=== PATIENT | female | born 1990 | race Caucasian/White ===

== ENCOUNTER 2024-04-30 19:31 | Emergency (ER) | payer SELFPAY ==
[~2024-04-30] VITALS: Ht 160 cm; Wt 60.0 kg
[~2024-04-30 19:31] MED LIST: NEOMYCIN/POLYMY1 SOL AU; OMNICEF300 M1 PO; ONDANSETRON4 MG PO; PERCOCET 5/325M1 TAB PO
[2024-04-30 19:42] VITALS: BP 120/81
[2024-04-30] MEDS ORDERED: ACETAMINOPHEN 500 MG TAB PO ONE (19:45)
[2024-04-30] MEDS ORDERED: DICLOFENAC SODIUM 75 MG/TAB PO ONE (19:45)
[2024-04-30] MEDS ORDERED: SULFAMETHOXAZOLE W/TRIMETHOPRI 1 COMBO TAB PO ONE (19:45)
[2024-04-30 19:47] VITALS: BP 113/92
[2024-04-30] MEDS ORDERED: BACTRIM DS1 TAB PO (19:50)
[2024-04-30 20:00] VITALS: BP 108/75
== END 2024-04-30 20:06 | disposition home or self-care (01) | DRG 607 ==
LOC: ED 19:31
DX: S60.461A Insect bite (nonvenomous) of left index finger, initial encounter (principal); L08.9 Local infection of the skin and subcutaneous tissue, unspecified; F17.200 Nicotine dependence, unspecified, uncomplicated; W57.XXXA Bitten or stung by nonvenomous insect and other nonvenomous arthropods, initial encounter

== ENCOUNTER 2024-08-30 23:50 | Emergency (ER) | payer SELFPAY ==
[~2024-08-30] VITALS: Ht 160 cm; Wt 65.0 kg
[~2024-08-30 23:50] MED LIST changes: +BACTRIM DS1 TAB PO
[2024-08-30 23:59] VITALS: BP 116/78
[2024-08-31 01:00] VITALS: BP 113/74
[2024-08-31] MEDS ORDERED: VOLTAREN - GENE75 MG PO (02:39)
[2024-08-31 03:11] VITALS: BP 113/74
== END 2024-08-31 03:12 | disposition home or self-care (01) | DRG 605 ==
LOC: ED 23:50
DX: S40.011A Contusion of right shoulder, initial encounter (principal); F17.200 Nicotine dependence, unspecified, uncomplicated; W20.8XXA Other cause of strike by thrown, projected or falling object, initial encounter; Y92.512 Supermarket, store or market as the place of occurrence of the external cause